=== PATIENT | male | born 1960 | race Two or more races ===

== ENCOUNTER → 2019-11-08 | Emergency (ER) | payer OTHER ==
[~2019-11-08] VITALS: Ht 165.1 cm; Wt 83.9 kg
[~2019-11-08] MED LIST: HYDROCHLOROTHIA25 MG; NORVASC10 MG; TENORMIN25 MG; VASOTEC10 MG
== END | disposition designated cancer center or children's hospital (05) ==
LOC: ER 15:41
DX: I61.0 Nontraumatic intracerebral hemorrhage in hemisphere, subcortical (principal); R55 Syncope and collapse